=== PATIENT | female | born 1950 | race Caucasian/White ===

== ENCOUNTER 2017-08-06 10:07 | Outpatient (CLI) | payer MEDICARE, BC ==
--- NOTE | 2017-08-06 11:35 | RAD ---
PA AND LATERAL VIEWS CHEST: HISTORY: Dyspnea. FINDINGS: Comparison is made with the exam of 04/20/17. The heart size is normal. The lungs are expanded with stable chronic changes. No lobar consolidatio n, pneumothoraces, or pleural effusions are seen. There are postop changes in the metallic hardware in the left humerus. Mild degenerative changes are seen in the spine. IMPRESSION: Stable exam. No acute process. POS: [facility]
== END 2017-08-06 10:08 | disposition home or self-care (01) ==
LOC: RAD 10:07
PROVIDERS: ATTEND Internal Medicine
DX: R06.00 Dyspnea, unspecified (principal)
CPT/HCPCS: 71046

== ENCOUNTER 2017-08-09 10:14 | Inpatient (IN) | payer MEDICARE, BC ==
[2017-08-09] MEDS ORDERED: Clindamycin/D5W 900 mg/50 ml Premix Bag ONE (11:41)
[2017-08-09 12:22] LABS: Hemoglobin 11.4 g/dL (12.0-16.0); Mean Corpuscular HGB CONC 31.8 g/dL (32.0-36.0); Mean Corpuscular Hemoglobin 33.3 pg (27.0-31.0); Mean Platelet Volume 8.1 fL (7.4-10.4); Platelet Count 221 thou/uL (130-400); RBC Distribution Width 11.6 % (11.5-14.5); Red Blood Cell (RBC) Count 3.42 mill/uL (4.20-5.40); White Blood Cell (WBC) Count 11.2 thou/uL (4.8-10.8)
[2017-08-09 12:41] LABS: Anion Gap 13 mmol/L (10-20); BUN (Urea Nitrogen) 24 mg/dL (9.8-20.1); Calc. Creatinine Clearance 69 mL/min (70-130); Calcium 9.6 mg/dL (7.8-10.44); Carbon Dioxide 30 mmol/L (23-31); Chloride 101 mmol/L (98-107); Estimated GFR-MDRD 52; Glucose 89 mg/dL (80-115); Potassium 4.4 mmol/L (3.5-5.1); Sodium 140 mmol/L (136-145)
--- NOTE | 2017-08-09 13:38 | RAD ---
THREE VIEWS LEFT SHOULDER: HISTORY: Preoperative radiograph. COMPARISON: Comparison is made to a previous exam from 02/13/14. FINDINGS: Three views of the left shoulder demonstrate a previously placed interosseous nail to demonstrate an area of lucency and non-healing. The proximal left femoral fracture has not healed. No other left s houlder abnormality is seen. IMPRESSION: Non-healing proximal left humeral fracture. Lucency is seen along the interosseous hardware. The pr oximal humeral fracture has not healed. POS: [facility]
--- NOTE | 2017-08-09 13:41 | RAD ---
TWO VIEWS LEFT HUMERUS: HISTORY: Preoperative radiograph. FINDINGS: AP and lateral views of left humerus are obtained. As described on the shoulder radiograph, there is lucency surrounding the proximal humeral hardware. The humeral head fracture has not healed. The rest of the left humerus is unremarkable. IMPRESSION: Non-healing of the proximal humeral fracture with lucency surrounding the hardware suggesting motion of the hardware within the proximal humerus. POS: [facility]
[2017-08-09] MEDS ORDERED: Fentanyl 100 MCG/2 ML VIAL ONE ×2 (13:55→16:29)
[2017-08-09] MEDS ORDERED: Lidocaine 1% PF 5 ML VIAL ONE (14:59)
[2017-08-09] MEDS ORDERED: ePHEDrine/0.9% NaCl/PF SYRINGE 50 mg/10 ml ONE (14:59)
[2017-08-09] MEDS ORDERED: PROPOFOL 200 MG/20 ML VIAL ONE (14:59)
[2017-08-09] MEDS ORDERED: Ondansetron HCl/PF 4 MG/2 ML Vial ONE (14:59)
[2017-08-09] MEDS ORDERED: PHENYLEPHRINE-NS 100 MCG/ML 10 ML SYRINGE ONE (14:59)
[2017-08-09] MEDS ORDERED: Bupivacaine 0.5% 10 ML VIAL ONE (15:50)
[2017-08-09] MEDS ORDERED: Lidocaine 1% w/Epinephrine 1:200K 30 ML VIAL ONE (15:50)
[2017-08-09] MEDS ORDERED: Ondansetron ODT 4 MG TAB PO PRN (16:49)
[2017-08-09] MEDS ORDERED: Ondansetron HCl/PF 4 MG/2 ML Vial IVP PRN ×2 (16:49→16:51)
[2017-08-09] MEDS ORDERED: traMADol HCl 50 MG TAB PO PRN (16:49)
[2017-08-09] MEDS ORDERED: HYDROcodone/Acetaminophen 10/325 mg Tablet PO PRN ×2 (16:49)
[2017-08-09] MEDS ORDERED: Promethazine HCl 25 MG/ML VIAL SLOW IVP PRN (16:51)
[2017-08-09] MEDS ORDERED: Promethazine HCl 25 MG/ML VIAL IM PRN (16:51)
[2017-08-09] MEDS ORDERED: Ketorolac Tromethamine 30 MG/ML VIAL ONE (16:54)
[2017-08-09] MEDS ORDERED: PROVENTIL INHALER 6.7 G (200 INHALATIONS) INH PRN (16:54)
--- NOTE | 2017-08-09 17:31 | RAD ---
LEFT SHOULDER THREE VIEWS: 08/09/17 HISTORY: Left humeral fracture. FINDINGS/IMPRESSION: Intraoperative fluoroscopy was provided for orthopedic hardware placement as performed by Dr. Marshall . Two spot fluoroscopic images show left shoulder prosthesis and long medullary maris to be in place. A lignment is anatomic. Fluoro time - 37 seconds. POS: [facility]
[2017-08-09] MEDS: Clindamycin/D5W 900 MG in Premix Bag 1 BAG IVPB SCH ×2 (18:41→23:06)
[2017-08-09] MEDS: Ketorolac Tromethamine 30 MG/ML VIAL IVP SCH ×3 (18:41→23:06)
[2017-08-09] MEDS: Mometasone 100 MCG HFA INHALER INH SCH (19:13)
--- NOTE | 2017-08-09 19:40 | OP ---
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 PROCEDURES: 1. Removal of hardware from the proximal aspect of the left humerus. 2. Proximal humeral replacement of the left shoulder. SURGEON: Ruel Marshall M.D. ANESTHESIA: General. TECHNIQUE: The patient was given preoperative IV antibiotics, taken to the operating room and placed in the supine position. Satisfactory general anesthesia was performed. The patient was then placed in the beach chair position and the left shoulder and upper extremity were sterilely prepped and nohelia ped in the usual fashion. An incision was made in the deltopectoral interval. The previous scar was excised. The deltopectoral interval was located. There was significant scarring in all layers and tension had to be made to sharply and bluntly lift the scarring between the fatty layer and the fasci a of the deltoid and the pectoralis muscle, and then between the deltoid muscle and the underlying ro tator cuff tendons. The subscapularis tendon was sharply incised from the anterior aspect of the pro ximal humerus. The supraspinatus and infraspinatus were still attached and were left in place on the proximal humerus. The stem of the previously placed intramedullary maris was located and the blade wa s also located. The top of the stem had the locking screw, this was removed. The blade was removed and then the maris was taken out. Under fluoroscopic visualization, the intramedullary canal was seque ntially reamed from 6 mm up to 10 mm which provided good interference fit. The guide was placed over the proximal femur, but because there was a nonunion, the guide could not be used since it is off th e forearm and the nonunion made it where the proximal aspect of humerus was free floating. The humer al head was placed in position and a cut was made on the proximal humerus. The trial stem was insert ed at 30 degrees retroversion and trial heads were placed. The size 44 head with the 18 mm thickness provided good positioning of the humeral head in the glenoid and allowed for good passive range of m otion and good stability. The trial was removed and the wound was copiously irrigated using the high speed recoverer. The glenoid looked very good. The articular cartilage of the glenoid was still in good condition and did not need replacing. The [employer] size 10 revision stem wh ich was 183 mm in length was then inserted into the proximal humerus at the 30-degree retroversion po sition and the standard humeral head which was 18 mm in thickness 44-mm size was impacted over the re vision stem and again was reduced and placed through range of motion at good stability and good range of motion. Again the wound was copiously irrigated and the shoulder was closed using #2 Vicryl to r eattach the rotator cuff tendons back in place. Once this was done, the proximal aspect of the humer us turned with the head and the stem and was no longer free floating. Once the rotator cuff was repa ired, #2 Vicryl was used to pull the deltoid fascia to the pectoralis fascia, 0 Vicryl for the fat an d subcutaneous tissue, and the skin was closed with 3-0 Rapide. The wound was then infiltrated with 30 mL of combination of 0.5% Marcaine, 1% lidocaine, and epinephrine. A sterile dressing was applied . The patient was awakened, extubated, and transferred to recovery room in stable condition. ESTIMATED BLOOD LOSS: 350 mL COMPLICATIONS: None.
[2017-08-09] MEDS ORDERED: Montelukast Sodium 10 mg Tablet PO SCH (21:00)
[2017-08-09] MEDS ORDERED: Ubidecarenone 50 MG CAP PO SCH (21:00)
[2017-08-09] MEDS ORDERED: Escitalopram Oxalate 10 mg Tablet PO SCH (21:00)
[2017-08-09 21:45] VITALS: BMI 37.0
[2017-08-10] MEDS: Ketorolac Tromethamine 30 MG/ML VIAL IVP SCH (05:29)
[2017-08-10] MEDS ORDERED: Levothyroxine Sodium 100 MCG TAB PO SCH (06:00)
[2017-08-10] MEDS ORDERED: RESVERATROL 100 MG PO SCH (09:00)
[2017-08-10] MEDS ORDERED: Amlodipine 5 MG TAB PO SCH (09:00)
[2017-08-10] MEDS ORDERED: Valsartan 80 MG TAB PO SCH (09:00)
[2017-08-10] MEDS ORDERED: Enoxaparin Sodium 40 MG/0.4 ML SYRINGE SC SCH (09:00)
[2017-08-10] MEDS: Mometasone 100 MCG HFA INHALER INH SCH (09:32)
[2017-08-10] MEDS ORDERED: Sodium Chloride 0.9% 1,000 ML IV SCH (11:30)
[2017-08-10 11:37] VITALS: TEMP 99
--- NOTE | 2017-08-10 13:22 | DIS ---
DATE OF ADMISSION: 08/09/2017 DATE OF DISCHARGE: 08/10/2017 HISTORY OF PRESENT ILLNESS: Please see admission history and physical. HOSPITAL COURSE: The patient was worked up medically prior to admission and found to be stable per S urgery. On the date of admission, the patient was given perioperative IV antibiotics, taken to the o perating room and underwent a proximal humeral replacement after removing a previous maris and screws t hat were placed for nonunion of the surgical neck of the left proximal humerus. The patient was plac ed in a shoulder immobilizer. She did have an episode where she had blood pressure systolic in the 6 0s. She was given a bolus of normal saline, this brought up to normal where her systolic was in the 120s. The patient was able to get up and out of bed with physical therapy and with very minimal pain . Left total upper extremity is neurovascularly intact. The patient states that she is not too much pain and would like to go home. 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 DISCHARGE MEDICATIONS: Patient will continue with her previous medications. She also wrote for tram adol 50 mg 1 every 6 hours as needed for pain, #60 with 1 refill. Follow up in my office in 7-10 days.
[2017-08-13 20:28] VITALS: BP 106/55
--- NOTE | 2017-10-13 13:57 | EKG ---
Test Reason : PREOP Blood Pressure : / mmHG Vent. Rate : 084 BPM Atrial Rate : 084 BPM P-R Int : 146 ms QRS Dur : 086 ms QT Int : 386 ms P-R-T Axes : 081 065 062 degrees QTc Int : 456 ms Normal sinus rhythm Normal ECG When compared with ECG of 21-SEP-2016 10:45, No significant change was found Confirmed by CHARLES CASTILLO MD ([id number]) on 10/13/2017 1:57:04 PM Referred By: BREANNA Confirmed By:CHARLES CASTILLO MD
== END 2017-08-10 13:57 | disposition home or self-care (01) | DRG 483 ==
LOC: SURG A 11:08
PROVIDERS: ADMIT Orthopaedic Surgery; ATTEND Orthopaedic Surgery
PROC: 0RRK0J6 Replacement of Left Shoulder Joint with Synthetic Substitute, Humeral Surface, Open Approach (ICD-10-PCS; principal; 2017-08-09)
DX: S42.212A Unspecified displaced fracture of surgical neck of left humerus, initial encounter for closed fracture (principal); M87.812 Other osteonecrosis, left shoulder; W19.XXXA Unspecified fall, initial encounter
CPT/HCPCS: 71046; 76001; 80048; 85027; 93005; 93010; G8978-GP-CM; G8979-GP-CK; G8987-GO-CJ; G8988-GO-CJ; G8989-GO-CJ; J1650; J1885; J2001; J2405; J2704; J3010; J3490

== ENCOUNTER 2018-06-03 16:00 | Outpatient (CLI) | payer MEDICARE, BC | END 2018-06-03 16:01 | disposition home or self-care (01) | LOC: SLEEPLAB 16:00 | PROVIDERS: ATTEND Internal Medicine | DX: G47.33 Obstructive sleep apnea (adult) (pediatric) (principal); R53.83 Other fatigue; K21.9 Gastro-esophageal reflux disease without esophagitis; R35.1 Nocturia; I10 Essential (primary) hypertension; R06.83 Snoring; R09.02 Hypoxemia; J44.9 Chronic obstructive pulmonary disease, unspecified; G47.00 Insomnia, unspecified; Z68.38 Body mass index [BMI] 38.0-38.9, adult | CPT/HCPCS: 95806 ==

== ENCOUNTER 2018-11-12 19:30 | Outpatient (CLI) | payer MEDICARE, BC | END 2018-11-12 19:31 | disposition home or self-care (01) | LOC: SLEEPLAB 19:30 | PROVIDERS: ATTEND Internal Medicine | DX: G47.33 Obstructive sleep apnea (adult) (pediatric) (principal); R53.83 Other fatigue; R51 Headache; K21.9 Gastro-esophageal reflux disease without esophagitis; R35.1 Nocturia; R09.02 Hypoxemia | CPT/HCPCS: 95811 ==

== ENCOUNTER 2021-02-02 08:51 | Outpatient (CLI) | payer MEDICARE, BC | END 2021-02-02 08:52 | disposition home or self-care (01) | LOC: BICCT 08:51 | PROVIDERS: ATTEND Internal Medicine Critical Care Medicine | DX: R91.8 Other nonspecific abnormal finding of lung field (principal); J47.9 Bronchiectasis, uncomplicated; J45.909 Unspecified asthma, uncomplicated | CPT/HCPCS: 71250 ==

== ENCOUNTER 2021-08-04 09:05 | Outpatient (CLI) | payer MEDICARE, BC | END 2021-08-04 09:06 | disposition home or self-care (01) | LOC: BICCT 09:05 | PROVIDERS: ATTEND Internal Medicine Critical Care Medicine | DX: J47.9 Bronchiectasis, uncomplicated (principal) | CPT/HCPCS: 71250 ==

== ENCOUNTER 2022-05-08 08:19 | Outpatient (CLI) | payer MEDICARE, BC | END 2022-05-08 08:20 | disposition home or self-care (01) | LOC: BICCT 08:19 | PROVIDERS: ATTEND Internal Medicine Critical Care Medicine | DX: J47.9 Bronchiectasis, uncomplicated (principal); R91.8 Other nonspecific abnormal finding of lung field | CPT/HCPCS: 71250 ==

== ENCOUNTER 2022-11-06 09:05 | Outpatient (CLI) | payer MEDICARE, BC | END 2022-11-06 09:06 | disposition home or self-care (01) | LOC: CT 09:05 | PROVIDERS: ATTEND Internal Medicine Critical Care Medicine | DX: J47.9 Bronchiectasis, uncomplicated (principal); R91.8 Other nonspecific abnormal finding of lung field | CPT/HCPCS: 71250 ==

== ENCOUNTER 2023-11-05 08:23 | Outpatient (CLI) | payer MEDICARE, BC | END 2023-11-05 08:24 | disposition home or self-care (01) | LOC: CT 08:23 | PROVIDERS: ATTEND Internal Medicine Critical Care Medicine | DX: J47.9 Bronchiectasis, uncomplicated (principal); J42 Unspecified chronic bronchitis | CPT/HCPCS: 71250 ==

== ENCOUNTER 2024-04-03 10:16 | Outpatient (CLI) | payer MEDICARE, BC | END 2024-04-03 10:17 | disposition home or self-care (01) | LOC: BICULT 10:16 | PROVIDERS: ATTEND Family Medicine | DX: E04.2 Nontoxic multinodular goiter (principal) | CPT/HCPCS: 76536 ==

== ENCOUNTER 2024-06-10 10:19 | Outpatient (CLI) | payer MEDICARE, BC | END 2024-06-10 10:20 | disposition home or self-care (01) | LOC: SCSRAD 10:19 | DX: R06.00 Dyspnea, unspecified (principal); R91.8 Other nonspecific abnormal finding of lung field | CPT/HCPCS: 71046 ==

== ENCOUNTER 2025-05-05 13:56 | Outpatient (CLI) | payer MEDICARE, BC | END 2025-05-05 13:57 | disposition home or self-care (01) | LOC: RAD 13:56 | PROVIDERS: ATTEND Internal Medicine Critical Care Medicine | DX: R06.00 Dyspnea, unspecified (principal); J98.4 Other disorders of lung | CPT/HCPCS: 71046 ==